=== PATIENT | male | born 1990 | race Caucasian/White ===

== ENCOUNTER 2017-05-17 17:43 | Emergency (ER) | payer BC, SELFPAY ==
[2017-05-17] MEDS ORDERED: HYDROcodone/Acetaminophen 5/325 mg Tablet ONE (19:20)
--- NOTE | 2017-05-17 20:29 | RAD ---
THREE VIEWS RIGHT SHOULDER: 05/17/17 HISTORY: Right shoulder pain after lifting an object. FINDINGS/IMPRESSION: There is no evidence of a fracture, dislocation, or other osseous abnormality involving the right sh oulder. POS: ALIZA
== END 2017-05-17 19:57 | disposition home or self-care (01) ==
LOC: ERS 17:43
DX: M25.511 Pain in right shoulder (principal); Z87.891 Personal history of nicotine dependence
CPT/HCPCS: 99283

== ENCOUNTER 2017-06-10 08:10 | Day surgery (SDC) | payer OTHER ==
[2017-06-09 11:24] VITALS: BMI 30.1
[2017-06-10] MEDS ORDERED: Bupivacaine 0.25% HCL 30 ML VIAL ONE (08:56)
[2017-06-10] MEDS ORDERED: Fentanyl 100 MCG/2 ML VIAL ONE (08:58)
[2017-06-10] MEDS ORDERED: Midazolam HCl 2 mg/2 ml Vial ONE (08:58)
[2017-06-10] MEDS ORDERED: CEFAZOLIN/Water 2 GM/20 ML SYRINGE ONE (09:13)
[2017-06-10] MEDS ORDERED: Glycopyrrolate 0.2 MG/ML 5 ML SYRINGE ONE (09:33)
[2017-06-10] MEDS ORDERED: Propofol 200 MG/20 ML VIAL ONE (09:33)
[2017-06-10] MEDS ORDERED: Ondansetron HCl/PF 4 MG/2 ML Vial ONE (09:33)
[2017-06-10] MEDS ORDERED: Meperidine HCl/PF 25 MG/ML VIAL ONE (10:55)
--- NOTE | 2017-06-10 11:15 | OP ---
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 POSTOPERATIVE DIAGNOSES: 1. Small chondral labral separation with no instability. 2. Significant bursitis, right subacromial space. 3. Acromioclavicular joint chondrolysis. PROCEDURES PERFORMED: 1. Right shoulder arthroscopy with debridement and shaving of subacromial bursa as well as debridem ent of the chondral labral separation. 2. Open distal clavicle excision. SURGEON: Leonardo Smith M.D. LATEX SPOOLER: Jareth Wisdom PA-C. BLOOD LOSS: Minimal. COMPLICATIONS: None. He did have general anesthetic as well as a 1 time block. There were no impl ants. DISPOSITION: He went to the recovery room in stable condition. INDICATIONS: This is a 27-year-old male who has been having significant pain in his AC joint and wa s found on an MR scan to have what appears to be weightlifter shoulder. At this time, he opted to h ave surgery. OPERATIVE PROCEDURE: After all appropriate consent forms were explained and signed, he was taken to the operating room and at this time was given a general anesthetic. Once the level of anesthesia w as appropriate, he was rolled into the left lateral decubitus position with all bony prominences wel l-padded and an axillary roll placed underneath the left axilla. Beanbag was inflated to hold him i n this position. The arm was taken through full range of motion and was then sung up in standard ar throscopic fashion with 15 pounds. The right shoulder and upper extremity were then prepped and ravi ped in the standard surgical fashion. Bony anatomic landmarks were then drawn out. Posterior majo l was established. Scope was placed into the shoulder joint. Anterior working portal was made usin gabriela a needle localization technique. Diagnostic arthroscopy commenced in the glenohumeral joint. The articular surfaces were in pristine condition. No loose bodies were noted in the axillary pouch. Subscapularis was intact. Rotator cuff was intact. Biceps was intact. Biceps sling was intact. T he only abnormality at all noted was slight chondral labral separation in the anterior labrum at zeeshan und 3 and 03:30 position. There was no instability whatsoever. This was only partially through and this was gently debrided with the shaver and was it. We then removed the scope and replaced in the subacromial space. Lateral working portal was made. At this time, using the surface energy as wel l as the shaver, copious bursa was removed, but no bony decompression was performed. Once the bursa was removed, the rotator cuff was evaluated and found to be intact. We then marked the AC joint wi th a needle. Scope was removed and at this time, an oblique incision was made over the AC joint yimi n through skin. Bovie was used to coagulate any brisk venous bleeding. Full thickness periosteal f laps were then taken to expose the distal clavicle. Hohmann were placed anterior and posterior and a saw was used to remove 1 cm distal clavicle. We also had to remove the remaining meniscal tissue as well as some pieces of cartilage which was floated off in the joint. Once this was done, we coag ulated any brisk venous bleeding. We then placed a small amount of bone wax onto the bleeding cance llous bone and we then thoroughly irrigated and dried. We then closed our periosteal sleeve followe d by 2-0 Vicryl and sutures to close skin. A simple suture was placed in each portal site. At this time, a bulky sterile dressing was applied. The patient was awakened and taken to recovery in stab le condition. All counts were correct at the end of the case and he did receive preoperative IV ant ibiotics.
== END 2017-06-10 12:58 | disposition home or self-care (01) ==
LOC: SDC 08:10
PROVIDERS: ATTEND Orthopaedic Surgery
PROC: 0RQJ4ZZ Repair Right Shoulder Joint, Percutaneous Endoscopic Approach (ICD-10-PCS; principal; 2017-06-10)
DX: S43.431A Superior glenoid labrum lesion of right shoulder, initial encounter (principal); G25.89 Other specified extrapyramidal and movement disorders; M89.511 Osteolysis, right shoulder; Z88.2 Allergy status to sulfonamides; Z88.8 Allergy status to other drugs, medicaments and biological substances; Z87.891 Personal history of nicotine dependence
CPT/HCPCS: 96374; J2175; J2250; J2405; J2704; J3010; S0020

== ENCOUNTER 2022-08-10 14:19 | Outpatient (CLI) | payer BC | END 2022-08-10 14:20 | disposition home or self-care (01) | LOC: ULT 14:19 | PROVIDERS: ATTEND Family Medicine | DX: E01.0 Iodine-deficiency related diffuse (endemic) goiter (principal) | CPT/HCPCS: 76536 ==

== ENCOUNTER 2022-08-18 07:25 | Outpatient (CLI) | payer BC ==
[2022-08-18] MEDS ORDERED: Iopamidol 370 76% 100 ML VIAL ONE (08:39)
== END 2022-08-18 07:26 | disposition home or self-care (01) ==
LOC: BICCT 07:25
PROVIDERS: ATTEND Family Medicine
DX: R59.0 Localized enlarged lymph nodes (principal); E07.89 Other specified disorders of thyroid
CPT/HCPCS: 70491; Q9967

== ENCOUNTER 2022-10-06 09:57 | Inpatient (IN) | payer BC ==
[2022-10-06 11:29] LABS: SARS-CoV-2 NAA Rapid Test Not Detected (NotDetected)
[2022-10-06] MEDS ORDERED: EPINEPHrine 1 MG/ML AMP ONE (11:51)
[2022-10-06] MEDS ORDERED: Lidocaine 1% (PF) 30 ML VIAL ONE (11:51)
[2022-10-06] MEDS ORDERED: Fentanyl 250 MCG/5 ML VIAL ONE (11:52)
[2022-10-06] MEDS ORDERED: HYDROmorphone 0.5 MG/0.5 ML SYRINGE ONE ×2 (11:52→15:41)
[2022-10-06] MEDS ORDERED: Propofol 1,000 MG/100 ML VIAL IV ONE (11:52)
[2022-10-06] MEDS ORDERED: CEFAZOLIN 2 GM VIAL ONE (11:58)
[2022-10-06] MEDS ORDERED: Sodium Chloride 0.9% 100 ML ONE ×2 (11:58→19:29)
[2022-10-06] MEDS ORDERED: Propofol 500 MG/50 ML VIAL ONE (12:12)
[2022-10-06] MEDS ORDERED: PHENYLEPHRINE-NS 100 MCG/ML 10 ML SYRINGE ONE (12:15)
[2022-10-06] MEDS ORDERED: Succinylcholine Chloride 100 MG/5 ML SYRINGE FS ONE (12:15)
[2022-10-06] MEDS ORDERED: Lidocaine 1% PF 5 ML VIAL ONE (12:15)
[2022-10-06] MEDS ORDERED: Ondansetron PF 4 MG/2 ML Vial ONE (12:15)
[2022-10-06] MEDS ORDERED: PROPOFOL 200 MG/20 ML VIAL ONE (12:15)
[2022-10-06] MEDS ORDERED: Dexamethasone 20 MG/5 ML VIAL ONE (12:15)
[2022-10-06] MEDS ORDERED: Promethazine HCl 25 MG/ML VIAL IM PRN (15:15)
[2022-10-06] MEDS ORDERED: Ondansetron HCl/PF 4 MG/2 ML Vial IVP PRN (15:15)
[2022-10-06] MEDS ORDERED: fentaNYL PF 100 MCG/2 ML SYRINGE ONE (15:19)
[2022-10-06] MEDS ORDERED: Hydrocodone-Acetamin 15 ML UDCUP PO PRN ×3 (15:31→15:46)
[2022-10-06] MEDS ORDERED: Ondansetron PF 4 MG/2 ML Vial IVP PRN (15:34)
[2022-10-06] MEDS ORDERED: Fentanyl 100 MCG/2 ML VIAL ONE ×2 (17:45→20:48)
[2022-10-06] MEDS ORDERED: CEFAZOLIN 1 GM VIAL ONE (19:24)
[2022-10-06] MEDS: CEFAZOLIN 1 GM in Sodium Chloride 0.9% 100 ML IVPB SCH (19:30)
[2022-10-06] MEDS: Morphine 2 MG/ML VIAL SLOW IVP PRN (21:40)
[2022-10-06 21:49] VITALS: BMI 35.7
[2022-10-06] MEDS: Calcium Carbonate 500 MG TAB PO SCH (22:28)
[2022-10-07] MEDS: Morphine 2 MG/ML VIAL SLOW IVP PRN ×2 (00:15→04:26)
[2022-10-07] MEDS: Hydrocodone-Acetamin 15 ML UDCUP PO PRN ×4 (01:55→19:58)
[2022-10-07] MEDS: CEFAZOLIN 1 GM in Sodium Chloride 0.9% 100 ML IVPB SCH ×3 (03:33→20:01)
[2022-10-07 08:00] LABS: #Lymphocytes 1.9 thou/uL (1.20-3.40); #Monocytes 1.1 thou/uL (0.11-0.59); #Neutrophils 8.5 thou/uL (1.40-6.50); %Basophils 0.2 % (0.0-1.0); %Eosinophils 0.4 % (0.0-10.0); %Lymphocytes 16.6 % (21.0-51.0); %Monocytes 9.8 % (0.0-10.0); %Neutrophils 73.1 % (42.0-75.0); Hemoglobin 15.8 g/dL (14.0-18.0); Mean Corpuscular HGB CONC 33.5 g/dL (32.0-36.0); Mean Corpuscular Hemoglobin 30.4 pg (27.0-31.0); Mean Platelet Volume 6.8 fL (7.4-10.4); Platelet Count 270 10x3/uL (130-400); White Blood Cell (WBC) Count 11.7 10x3/uL (4.8-10.8)
[2022-10-07] MEDS: Bacitracin 1 PK TOP PRN (08:13)
[2022-10-07] MEDS: Calcitriol 0.25 MCG CAP PO SCH (08:18)
[2022-10-07] MEDS: Calcium Carbonate 500 MG TAB PO SCH ×3 (08:27→19:59)
[2022-10-07 08:38] LABS: Anion Gap 14 mmol/L (10-20); BUN (Urea Nitrogen) 12 mg/dL (8.9-20.6); Calc. Creatinine Clearance 195 mL/min (70-130); Calcium 8.4 mg/dL (7.8-10.44); Carbon Dioxide 24 mmol/L (22-29); Chloride 103 mmol/L (98-107); Estimated GFR 118; Glucose 115 mg/dL (70-105); Potassium 3.7 mmol/L (3.5-5.1); Sodium 137 mmol/L (136-145)
[2022-10-08] MEDS: Hydrocodone-Acetamin 15 ML UDCUP PO PRN ×3 (03:55→16:37)
[2022-10-08] MEDS: CEFAZOLIN 1 GM in Sodium Chloride 0.9% 100 ML IVPB SCH ×2 (03:57→12:34)
[2022-10-08] MEDS: Calcium Carbonate 500 MG TAB PO SCH ×2 (08:36→16:38)
[2022-10-08] MEDS: Calcitriol 0.25 MCG CAP PO SCH (08:36)
[2022-10-08] MEDS: Bacitracin 1 PK TOP PRN (08:37)
[2022-10-08 12:02] VITALS: TEMP 97.7
== END 2022-10-08 17:19 | disposition home or self-care (01) | DRG 627 ==
LOC: SDC 09:57 → IMCU/EMU 15:18
PROVIDERS: ADMIT Otolaryngology Plastic Surgery within the Head & Neck; ATTEND Otolaryngology Plastic Surgery within the Head & Neck
PROC: 0GTK0ZZ Resection of Thyroid Gland, Open Approach (ICD-10-PCS; principal; 2022-10-06)
PROC: 07T20ZZ Resection of Left Neck Lymphatic, Open Approach (ICD-10-PCS; 2022-10-06)
PROC: 4A1104G Monitoring of Peripheral Nervous Electrical Activity, Intraoperative, Open Approach (ICD-10-PCS; 2022-10-06)
DX: C73 Malignant neoplasm of thyroid gland (principal); G89.18 Other acute postprocedural pain; I10 Essential (primary) hypertension; I25.10 Atherosclerotic heart disease of native coronary artery without angina pectoris; E66.9 Obesity, unspecified; Z87.891 Personal history of nicotine dependence; Z82.49 Family history of ischemic heart disease and other diseases of the circulatory system; Z88.2 Allergy status to sulfonamides; Z88.8 Allergy status to other drugs, medicaments and biological substances; Z98.890 Other specified postprocedural states; Z68.35 Body mass index [BMI] 35.0-35.9, adult; Z20.822 Contact with and (suspected) exposure to COVID-19
CPT/HCPCS: 36415; 80048; 82310; 83970; 85025; 88307; 88309; C1776; J0171; J0690; J1100; J1170; J2001; J2272; J2405; J2704; J3010; J3490; U0002

== ENCOUNTER 2023-12-27 08:00 | Outpatient (CLI) | payer BC | END 2023-12-27 08:01 | disposition home or self-care (01) | LOC: PET 08:00 | PROVIDERS: ATTEND Internal Medicine Endocrinology, Diabetes & Metabolism | DX: C73 Malignant neoplasm of thyroid gland (principal); R22.1 Localized swelling, mass and lump, neck | CPT/HCPCS: 78815; A9552 ==

== ENCOUNTER 2024-05-02 12:34 | Outpatient (CLI) | payer BC | END 2024-05-02 12:35 | disposition home or self-care (01) | LOC: NM 12:34 | PROVIDERS: ATTEND Internal Medicine Endocrinology, Diabetes & Metabolism | DX: C73 Malignant neoplasm of thyroid gland (principal) | CPT/HCPCS: 78018; A9517 ==